=== PATIENT | male | born 1970 | race Caucasian/White ===

== ENCOUNTER 2019-03-23 13:00 | Inpatient (IN) | payer OTHER ==
[2019-03-23 15:59] VITALS: BMI 22.1
--- NOTE | 2019-03-23 16:59 | HP ---
CIWA Score Nausea/Vomitin-No Nausea/No Vomiting Muscle Tremors: 2 Anxiety: 3 Agitation: 4-Moderately Restless Paroxysmal Sweats: 2 Orientation: 0-Oriented Tacttile Disturbances: 0-None Auditory Disturbances: 0-None Visual Disturbances: 0-None Headache: 2-Mild (frontal SENA 3/10 severity) CIWA-Ar Total Score: 13 - Admission Criteria [facility]AS Guidelines: Admission for Medically Managed Detox: Requires at least one of the followin. CIWA greater than 12 2. Seizures within the past 24 hours 3. Delirium tremens within the past 24 hours 4. Hallucinations within the past 24 hours 5. Acute intervention needed for co occurring medical disorder 6. Acute intervention needed for co occurring psychiatric disorder 7. Severe withdrawal that cannot be handled at a lower level of care (continued vomiting, continued diarrhea, abnormal vital signs) requiring intravenous medication and/or fluids 8. Admission ROS [facility] Chief Complaint: detox for heroin, cocaine, EtOH Allergies/Adverse Reactions: Allergies Allergy/AdvReac Type Severity Reaction Status Date / Time No Known Allergies Allergy Verified 03/23/19 15:50 History of Present Illness: 48M w/ no significant pmh presenting for detox for heroin, cocaine, EtOH. Heroin (nasal) 2bag, daily for 1.5ys. First usage at 22yo. Last usage ~0100. OD x2, latest . Denies blackout. No narcan kit. Never shared needles. Drinks 10- 12beers daily, starts drinking in afternoon. Last drink at 2300. Denies blackouts, seizures, tremors. Cocaine(nasal) 1-2g daily. Xanax 2mg QD, had it initially prescribed for anxiety 1 yr prior. Started buying it from the street. Methadone(90mg), went today. Smokes 2-3cig daily. Heroin-free for 13ys while on methadone, but relapsed ~1.5yr prior. Served 6ys in longterm for drug-related crime in 2001. Not on parole. Lives with friends. Works in [email or web address] Exam Limitations: No Limitations - Ebola screening Have you traveled outside of the country in the last 21 days: No Have you had contact with anyone from an Ebola affected area: No Do you have a fever: No - Review of Systems Constitutional: Unintentional Wgt. Loss (lost 20lbs in 1yr) EENT: denies: Blurred Vision, Double Vision Respiratory: denies: Cough, Wheezing Cardiac: denies: Chest Pain, Chest Tightness GI: denies: Nausea, Vomiting : denies: Dysuria, Urgency Neuro: reports: Headache (3/10 severity, frontal SENA) Patient History - Patient Medical History Hx Anemia: No Hx Chronic Obstructive Pulmonary Disease (COPD): No Hx Cancer: No HX Cerebrovascular Accident: No Hx Diabetes: No Hx Human Immunodeficiency Virus (HIV): No - Patient Surgical History Past Surgical History: No - Smoking Cessation Smoking history: Current every day smoker Have you smoked in the past 12 months: Yes Initiated information on smoking cessation: No - Substances abused Alcohol Substance route: Oral Frequency: Daily Amount used: 8 beers 16oz Age of first use: 24 Date of last use: 03/23/19 Cocaine Substance route: Smoking Frequency: Daily Amount used: 2 grams Age of first use: 20 Date of last use: 03/22/19 Heroin Other (specify): sniff Frequency: Daily Amount used: 2 bags Age of first use: 22 Date of last use: 03/22/19 Family Disease History - Family Disease History Family Disease History: CA: Grandparent (lung), Father (renal) Admission Physical Exam BHS - Vital Signs Vital Signs: Vital Signs - 24 hr 03/23/19 15:52 Temperature 97.8 F Pulse Rate 52 L Respiratory 18 Rate Blood Pressure 107/72 - Physical General Appearance: Yes: Anxious. No: No Apparent Distress HEENTM: No: Pale Conjunctivae R, Pale Conjunctivae L Respiratory: Yes: Lungs Clear, No Respiratory Distress. No: Respiratory Distress, Wheezing Neck: Yes: Supple, Crepetius Cardiology: Yes: Regular Rate, S1, S2. No: Irregularly Irregular Abdominal: Yes: Soft, Mass. No: Distended, Tenderness Musculoskeletal: Yes: full range of Motion Extremities: Yes: Tremors (with arms extended). No: Calf Tenderness Neurological: Yes: Fully Oriented, Alert Integumentary: Yes: Dry, Warm Breathalyzer - Breathalyzer Breathalyzer: 0 Urine Drug Screen - Test Device Lot number: [id number] Expiration date: 12/03/20 - Control Is test valid?: Yes - Results Drug screen NEGATIVE: No Urine drug screen results: HOLDEN-Cocaine, FEN-Fentanyl, MOP-Opiates, MTD-Methadone , BZO-Benzodiazepines Inpatient Rehab Admission - Rehab Decision to Admit Inpatient rehab admission?: No
[2019-03-23] MEDS ORDERED: hydrOXYzine PAMOATE 25 MG CAPSULE (FP) PO PRN (17:15)
[2019-03-23] MEDS ORDERED: ACETAMINOPHEN 325 MG TABLET (FP) PO PRN ×2 (17:15)
[2019-03-23] MEDS ORDERED: BISMUTH SUBSALICYLATE 524 MG/30 ML UD PO PRN (17:15)
[2019-03-23] MEDS ORDERED: METHOCARBAMOL 500 MG TABLET PO PRN (17:15)
[2019-03-23] MEDS ORDERED: NICOTINE POLACRILEX 2 MG GUM BUC PRN (17:15)
[2019-03-23] MEDS ORDERED: diazePAM 5 MG TABLET PO PRN (17:15)
[2019-03-23] MEDS ORDERED: MAGNESIUM HYDROX 2400MG/30ML ORAL SUSPENSION 30 ML CUP PO PRN (17:15)
[2019-03-23] MEDS ORDERED: MENTHOL/PHENOL 1 EACH UD MM PRN (17:15)
[2019-03-23] MEDS ORDERED: MAGNESIUM CITRATE 300 ML BOTTLE PO PRN (17:15)
[2019-03-23] MEDS ORDERED: IBUPROFEN 400 MG TABLET (FP) PO PRN (17:15)
--- NOTE | 2019-03-23 17:16 | PN ---
Teaching Attending Note Name of Resident: Jose Luis Jara ATTENDING PHYSICIAN STATEMENT I saw and evaluated the patient. I reviewed the resident's note and discussed the case with the resident. I agree with the resident's findings and plan as documented. SUBJECTIVE: 48 yo with no medical problems, here for alcohol detox- in a methadone program pt states has been using for several years- no h/o seizures OBJECTIVE: Vital Signs - 24 hr 03/23/19 15:52 Temperature 97.8 F Pulse Rate 52 L Respiratory 18 Rate Blood Pressure 107/72 tremulous alert and oriented ASSESSMENT AND PLAN: OUD- methadone MAT Alcohol use disorder: detox per protocol
[2019-03-23] MEDS: MELATONIN 5 MG TABLETS PO PRN (23:03)
[2019-03-23] MEDS: diazePAM 5 MG TABLET PO SCH (23:03)
[2019-03-23] MEDS: THIAMINE HCL 100 MG TABLET (FP) PO SCH (23:03)
[2019-03-24] MEDS: diazePAM 5 MG TABLET PO SCH ×3 (07:00→22:47)
[2019-03-24] MEDS ORDERED: METHADONE HCL 10 MG TABLET PO ONE (09:55)
[2019-03-24] MEDS ORDERED: METHADONE 80 MG, METHADONE 10 MG PO ONE (10:15)
[2019-03-24] MEDS ORDERED: METHADONE HCL 10 MG TABLET ONE (10:41)
[2019-03-24] MEDS ORDERED: METHADONE HCL 40 MG DISPERSABLE TABLET ONE (10:41)
[2019-03-24] MEDS: PRENATAL VITAMINS W/ FOLIC ACID TABLET (FP) PO SCH (11:13)
[2019-03-24 11:37] LABS: HEMATOCRIT 37.1 % (35.4-49); HEMOGLOBIN 12.5 GM/dL (11.7-16.9); MCH 31.1 pg (25.7-33.7); MCHC 33.6 g/dl (32.0-35.9); MEAN CELL VOLUME 92.6 fl (80-96); MEAN PLT VOLUME 10.7 fl (7.5-11.1); PLATELET COUNT 212 K/MM3 (134-434); RBC 4.01 M/mm3 (4.00-5.60); RDW 14.2 % (11.9-15.9); WHITE BLOOD COUNT 6.6 K/mm3 (4.0-10.0)
[2019-03-24 11:41] LABS: ALBUMIN 3.6 g/dl (3.4-5.0); BILIRUBIN,TOTAL 0.4 mg/dL (0.2-1); BLOOD UREA NITROGEN 19.7 mg/dL (7-18); CALCIUM 9.1 mg/dL (8.5-10.1); POTASSIUM 4.6 mmol/L (3.5-5.1); TOT PROT 7.7 g/dl (6.4-8.2)
--- NOTE | 2019-03-24 13:12 | PN ---
S CIWA - CIWA Score Nausea/Vomitin-No Nausea/No Vomiting Muscle Tremors: 3 Anxiety: 3 Agitation: 3 Paroxysmal Sweats: 3 Orientation: 0-Oriented Tacttile Disturbances: 0-None Auditory Disturbances: 0-None Visual Disturbances: 0-None Headache: 0-None Present CIWA-Ar Total Score: 12 S Progress Note (SOAP) Subjective: irritable sweats shakes agitation interrupted sleep Objective: 03/24/19 13:11 Vital Signs Temperature 98.6 F 03/24/19 09:13 Pulse Rate 61 03/24/19 09:13 Respiratory Rate 16 03/24/19 09:13 Blood Pressure 101/70 03/24/19 09:13 O2 Sat by Pulse Oximetry (%) Laboratory Tests 03/24/19 03/24/19 07:50 07:50 WBC 6.6 RBC 4.01 Hgb 12.5 Hct 37.1 MCV 92.6 MCH 31.1 MCHC 33.6 RDW 14.2 Plt Count 212 MPV 10.7 Sodium 139 Potassium 4.6 Chloride 108 H Carbon Dioxide 26 Anion Gap 5 L BUN 19.7 H Creatinine 1.0 Est GFR (CKD-EPI)AfAm 104.15 Est GFR (CKD-EPI)NonAf 89.86 Random Glucose 86 Calcium 9.1 Total Bilirubin 0.4 AST 36 ALT 57 Alkaline Phosphatase 84 Total Protein 7.7 Albumin 3.6 labs noted aaox3 ambulating no acute distress Assessment: 03/24/19 13:12 withdrawals sx Plan: continue detox increase fluids
[2019-03-24] MEDS: MAG HYDROX/AL HYDROX/SIMETH 30 ML UNIT-DOSE CUP PO PRN (18:57)
[2019-03-24] MEDS: THIAMINE HCL 100 MG TABLET (FP) PO SCH (22:47)
[2019-03-25] MEDS: MAG HYDROX/AL HYDROX/SIMETH 30 ML UNIT-DOSE CUP PO PRN ×3 (01:52→18:20)
[2019-03-25] MEDS ORDERED: METHADONE HCL 10 MG TABLET ONE (05:02)
[2019-03-25] MEDS ORDERED: METHADONE HCL 40 MG DISPERSABLE TABLET ONE (05:03)
[2019-03-25] MEDS: diazePAM 5 MG TABLET PO SCH ×2 (05:27→19:37)
[2019-03-25] MEDS: METHADONE 80 MG, METHADONE 10 MG PO SCH (05:27)
[2019-03-25] MEDS ORDERED: METHADONE HCL 40 MG DISPERSABLE TABLET PO SCH (06:00)
--- NOTE | 2019-03-25 09:01 | PN ---
S CIWA - CIWA Score Nausea/Vomitin-Mild Nausea/No Vomiting Muscle Tremors: 2 Anxiety: 2 Agitation: 2 Paroxysmal Sweats: No Perspiration Orientation: 0-Oriented Tacttile Disturbances: 0-None Auditory Disturbances: 0-None Visual Disturbances: 0-None Headache: 1-Very Mild CIWA-Ar Total Score: 8 BHS Progress Note (SOAP) Subjective: alert irritable,anxious,interrupted sleep,pain in the body Objective: 03/25/19 08:58 Vital Signs Temperature 97.9 F 03/25/19 07:35 Pulse Rate 64 03/25/19 07:35 Respiratory Rate 18 03/25/19 07:35 Blood Pressure 95/58 L 03/25/19 07:35 O2 Sat by Pulse Oximetry (%) Assessment: 03/25/19 08:58 withdrawal symptom Plan: continue detox,bun 19.7,encourage oral fluid,discharge in am at 0700,need to get to his [facility] clinic
[2019-03-25] MEDS: PRENATAL VITAMINS W/ FOLIC ACID TABLET (FP) PO SCH (10:34)
[2019-03-25] MEDS: MELATONIN 5 MG TABLETS PO PRN (22:51)
[2019-03-25] MEDS: THIAMINE HCL 100 MG TABLET (FP) PO SCH (22:51)
[2019-03-26] MEDS: MAG HYDROX/AL HYDROX/SIMETH 30 ML UNIT-DOSE CUP PO PRN (01:33)
[2019-03-26] MEDS ORDERED: METHADONE HCL 10 MG TABLET ONE (05:47)
[2019-03-26] MEDS ORDERED: METHADONE HCL 40 MG DISPERSABLE TABLET ONE (05:47)
[2019-03-26] MEDS ORDERED: diazePAM 5 MG TABLET PO ONE (06:00)
[2019-03-26] MEDS: METHADONE 80 MG, METHADONE 10 MG PO SCH (06:27)
[2019-03-26 09:39] VITALS: BP 111/72; PULSE 73; TEMP 98.2
--- NOTE | 2019-03-26 13:29 | DS ---
[facility] Detox Discharge Summary Admission Date: 03/23/19 Discharge Date: 03/26/19 - History Present History: Alcohol Dependence, Cocaine Dependence, Opioid Dependence, MMTP Additional Comments: Pt is medically cleared and is discharged today. Pt completed his detox protocol. Pt is encouraged to follow-up with outpatient CD program and also to follow-up with his PMD. Pt verbalized understanding. Pt is alert and oriented x3 and in no respiratory distress. Pertinent Past History: h/o heroin, cocaine, and alcohol use disorder. - Physical Exam Results Vital Signs: Vital Signs Temperature 98.2 F 03/26/19 09:38 Pulse Rate 73 03/26/19 09:38 Respiratory Rate 17 03/26/19 09:38 Blood Pressure 111/72 03/26/19 09:38 O2 Sat by Pulse Oximetry (%) Vital Signs 03/26/19 03/26/19 06:00 09:38 Temperature 97.3 F L 98.2 F Pulse Rate 57 L 73 Respiratory 18 17 Rate Blood Pressure 100/64 111/72 Lab Results WBC 6.6 K/mm3 (4.0-10.0) 03/24/19 07:50 RBC 4.01 M/mm3 (4.00-5.60) 03/24/19 07:50 Hgb 12.5 GM/dL (11.7-16.9) 03/24/19 07:50 Hct 37.1 % (35.4-49) 03/24/19 07:50 MCV 92.6 fl (80-96) 03/24/19 07:50 MCHC 33.6 g/dl (32.0-35.9) 03/24/19 07:50 RDW 14.2 % (11.9-15.9) 03/24/19 07:50 Plt Count 212 K/MM3 (134-434) 03/24/19 07:50 Sodium 139 mmol/L (136-145) 03/24/19 07:50 Potassium 4.6 mmol/L (3.5-5.1) 03/24/19 07:50 Chloride 108 mmol/L (98-107) H 03/24/19 07:50 Carbon Dioxide 26 mmol/L (21-32) 03/24/19 07:50 Anion Gap 5 MMOL/L (8-16) L 03/24/19 07:50 BUN 19.7 mg/dL (7-18) H 03/24/19 07:50 Creatinine 1.0 mg/dL (0.55-1.3) 03/24/19 07:50 Random Glucose 86 mg/dL (74-106) 03/24/19 07:50 Calcium 9.1 mg/dL (8.5-10.1) 03/24/19 07:50 Labs noted. Pertinent Admission Physical Exam Findings: withdrawal symptoms. - Treatment Hospital Course: Detox Protocol Followed, Detoxed Safely, Responded well, Discharged Condition Good - Medication Discharge Medications: Ambulatory Orders NK [No Known Home Medication] 03/23/19 - Diagnosis (1) Alcohol use disorder Status: Acute (2) Cocaine use disorder Status: Chronic (3) Heroin dependence Status: Chronic (4) Methadone maintenance therapy patient Status: Acute - AMA Did Patient Leave Against Medical Advice: No BHS CIWA - CIWA Score Nausea/Vomitin-No Nausea/No Vomiting Muscle Tremors: None Anxiety: 0-No Anxiety, at Ease Agitation: 0-Normal Activity Paroxysmal Sweats: 2 Orientation: 0-Oriented Tacttile Disturbances: 0-None Auditory Disturbances: 0-None Visual Disturbances: 0-None Headache: 0-None Present CIWA-Ar Total Score: 2
== END 2019-03-26 08:53 | disposition home or self-care (01) | DRG 773 ==
LOC: YASAS 13:00 → Y6N 18:18
PROVIDERS: ADMIT Surgery; ATTEND Surgery
PROC: HZ2ZZZZ Detoxification Services for Substance Abuse Treatment (ICD-10-PCS; principal; 2019-03-23)
DX: F10.230 Alcohol dependence with withdrawal, uncomplicated (principal); F11.20 Opioid dependence, uncomplicated; F14.20 Cocaine dependence, uncomplicated; F17.210 Nicotine dependence, cigarettes, uncomplicated
CPT/HCPCS: 36415; 80053; 85027; 86593